=== PATIENT | male | born 1950 | race Caucasian/White ===

== ENCOUNTER 2022-07-17 23:03 | Emergency (ER) | payer MEDICARE, OTHER, SELFPAY ==
[2022-07-17 23:24] VITALS: BP 106/77; PULSE 92; RESP 16; TEMP 35.4; O2SAT 95
--- NOTE | 2022-07-18 00:26 | ED_ITS ---
HPI - General Adult General Chief complaint: Unspecified Complaint, Adult Stated complaint: exposed to covid Time Seen by Provider: 07/17/22 23:04 History of Present Illness HPI narrative: Pt is a 71 year old gentleman who just returned from a trip. He feels fine with absolutely no symptoms but his became ill 2 days ago with congestion and pharyngitis. She tested positive for COVID 19 yesterday. They are both in looking for further recommendations. Related Data Home Medications Medication Instructions Recorded Confirmed apixaban 5 mg tablet (Eliquis) 5 mg PO Q12H 07/17/22 07/17/22 bisacodyl 5 mg tablet,delayed mg PO 07/17/22 release peg 3350-electrolytes 236 ml 07/17/22 gram-22.74 gram-6.74 gram-5.86 gram solution (GaviLyte-G) rosuvastatin 10 mg tablet 10 mg PO DAILY 07/17/22 07/17/22 Previous Rx's Medication Instructions Recorded nirmatrelvir 300 mg (150 mg 1 ea PO PER PKG DIR #30 ea 07/18/22 x2)-ritonavir 100 mg tablet,dose pack(EUA) (Paxlovid) Allergies Allergy/AdvReac Type Severity Reaction Status Date / Time No Known Drug Allergies Allergy Verified 07/17/22 23:28 Review of Systems Status of ROS: Reports: 10 or more systems reviewed and unremarkable except as noted in History and below [facility] Medical History (Updated 07/18/22 @ 00:38 by Can Mcmullen MD) Bladder carcinoma BPV (benign positional vertigo) Depression Erectile dysfunction Hyperlipidemia Impingement syndrome of left shoulder Neuropathy Prostate CA PSA elevation Surgical History (Updated 07/17/22 @ 23:36 by Zelda Andrade RN) H/O blepharoplasty H/O prostatectomy Hx of tonsillectomy Exam Narrative: Exam Narrative: EXAM GENERAL: Patient appears comfortable and well. EYES: No scleral icterus. ENT: Tympanic membranes and oropharynx normal. THYROID: no thyroid nodules or thyromegaly. LYMPH: No supraclavicular or cervical lymphadenopathy. SKIN: Visible skin seen during exam normal or with benign process only. EXT: No dependent lower extremity pedal edema. HEART: Regular rate and rhythm with no murmurs, rubs, or gallops. LUNGS: Clear to auscultation bilaterally with no crackles or wheezes. ABD: Soft, non tender, non distended. PSYCH: Good eye contact, speech is not pressured. Const: Vital Signs, click to edit/add: Vital Signs - 24 hr 07/17/22 23:24 Temperature 95.8 F L Pulse Rate [Right Pulse Oximeter] 92 Respiratory Rate 16 Blood Pressure [Le ft Upper Arm] 106/77 Pulse Oximetry 95 Oxygen Delivery Me thod Room Air Course Course Hospital Course: COVID testing positive. Vital Signs Vital signs: Initial Vital Signs Temperature 95.8 F L 07/17/22 23:24 Temperature Source Temporal Artery Scan 07/17/22 23:24 Pulse Rate 92 07/17/22 23:24 Pulse Rhythm 07/17/22 23:24 Respiratory Rate 16 07/17/22 23:24 Blood Pressure 106/77 07/17/22 23:24 Blood Pressure Mean 86 07/17/22 23:24 Blood Pressure Position Sitting 07/17/22 23:24 Pulse Oximetry 95 07/17/22 23:24 Oxygen Delivery Method 07/17/22 23:24 Vital Signs Temperature 95.8 F L 07/17/22 23:24 Pulse Rate 92 07/17/22 23:24 Respiratory Rate 16 07/17/22 23:24 Blood Pressure 106/77 07/17/22 23:24 Pulse Oximetry 95 07/17/22 23:24 Oxygen Delivery Method 07/17/22 23:24 Temperature 95.8 F L 07/17/22 23:24 Pulse Rate 92 07/17/22 23:24 Respiratory Rate 16 07/17/22 23:24 Blood Pressure 106/77 07/17/22 23:24 Pulse Oximetry 95 07/17/22 23:24 Oxygen Delivery Method 07/17/22 23:24 Medical Decision Making MDM Narrative Medical decision making narrative: Patient has tested positive for COVID-19. He will be placed on Paxil that for 5 days. He will decrease his apixaban which he takes for chronic atrial fibrillation to 2.5 mg BID and will hold his Rosuvastatin during treatment and for five days after. Differential Diagnosis Differential Diagnosis: COVID, URI, Pneumonia Lab Data Labs: Lab Results 07/17/22 Range/Units 23:14 SARS-CoV-2 (PCR) POSITIVE SARS-CoV-2 A (Negative) Discharge Plan Discharge Clinical Impression: COVID-19 Condition: Stable Instructions: COVID-19 (Coronavirus Disease 2019) (ED) Additional Instructions: Paxlovid as directed Quarantine for 5 days and then wear mask in public for 5 days Decrease Apixiban to 2.5 mg twice daily during treatment Hold Rosuvastatin during treatment and for 5 days after Follow up with your doctor as needed Activity Level: Activity as Tolerated Discharge Diet: Regular Prescriptions: New Paxlovid (EUA) 300 mg (150 mg x 2)-100 mg tablets,dose pack 1 ea PO PER PKG DIR Qty: 30 0RF Rx Instructions: 1 ea orally; No Action bisacodyl 5 mg tablet,delayed release (DR/EC) PO Label Comments: TAKE 2 TABLETS BY MOUTH ONCE FOR 1 DOSE. TAKE AT 6 PM THE EVENING PRIOR TO COLONOSCOPY rosuvastatin 10 mg tablet 10 mg PO DAILY peg 3350-electrolytes [GaviLyte-G] 236-22.74-6.74 -5.86 gram recon soln Label Comments: PLEASE SEE ATTACHED FOR DETAILED DIRECTIONS Eliquis 5 mg tablet 5 mg PO Q12H Label Comments: TAKE 1 TABLET BY MOUTH TWICE A DAY Follow Up/Referrals: Cami Beckham MD [Primary Care Provider] - Stand Alone Forms: TSAT Groupth Info Instructions
[2022-07-18 00:27] LABS: SARS PCR* POSITIVE SARS-CoV-2 (Negative)
== END 2022-07-18 01:08 | disposition home or self-care (01) ==
PROVIDERS: Emergency Provider Internal Medicine; PCP Internal Medicine
DX: U07.1 COVID-19 (principal)
CPT/HCPCS: 87635; 99283; 99284

== ENCOUNTER 2024-01-03 10:00 | Outpatient (RCR) | payer MEDICARE, OTHER, SELFPAY | END 2024-01-03 14:19 | disposition home or self-care (01) | PROVIDERS: PCP Internal Medicine; Visit Provider Family Medicine | DX: M50.30 Other cervical disc degeneration, unspecified cervical region (principal); M48.02 Spinal stenosis, cervical region; Z51.89 Encounter for other specified aftercare | CPT/HCPCS: 97110; 97112; 97140; 97162 ==